=== PATIENT | female | born 1980 | race African-American/Black ===

== ENCOUNTER 2019-05-13 19:58 | Emergency (ER) | payer OTHER ==
[~2019-05-13] VITALS: Ht 167.6 cm; Wt 116.6 kg
[2019-05-13 21:16] VITALS: BP 130/81
== END 2019-05-13 21:17 | disposition home or self-care (01) ==
LOC: ER 19:58
DX: S20.02XA Contusion of left breast, initial encounter (principal); N60.02 Solitary cyst of left breast; X58.XXXA Exposure to other specified factors, initial encounter; Y93.89 Activity, other specified; Y92.89 Other specified places as the place of occurrence of the external cause; Y99.8 Other external cause status